=== PATIENT | male | born 2000 | race African-American/Black ===

== ENCOUNTER 2022-07-13 02:03 | Emergency (ER) | payer SELFPAY ==
[~2022-07-13] VITALS: Ht 154.9 cm; Wt 80.0 kg
[2022-07-13 02:49] VITALS: BP 116/70
== END 2022-07-13 03:02 | disposition left against medical advice (07) ==
LOC: ER 02:03
DX: Z53.21 Procedure and treatment not carried out due to patient leaving prior to being seen by health care provider (principal)